=== PATIENT | male | born 1980 | race Caucasian/White ===

== ENCOUNTER 2017-07-31 15:26 | Emergency (ER) | payer SELFPAY ==
[2017-07-31 15:49] VITALS: BP 119/78
--- NOTE | 2017-07-31 16:50 | EDM.PDOC ---
ED HPI GENERAL MEDICAL PROBLEM - General Chief Complaint: Respiratory Problem Stated Complaint: BODY ACHES/COUGH Time Seen by Provider: 07/31/17 16:07 Source of Information: Reports: Patient, Family History Limitations: Reports: No Limitations - History of Present Illness INITIAL COMMENTS - FREE TEXT/NARRATIVE: Patient is a 36 year old male who presents to the E.D. with a two day history of flu like symptoms. States he was exposed to the flu at work. Symptoms he is currently experiencing is Headache, runny, mild cough, congestion, body aches , and pains. Has been taking dayquil with minimal relief. No documented fever although has felt warm. He was vaccinated. Does not have a sore throat. Sister is present in the E.D. as well with similar symptoms. Denies any PMH and is currently on no prescription medications. 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 (see below) Other Treatments SMALLTALK DEVELOPER: dayquil Generalized Pain Score (Numeric/FACES): 3 - Related Data Allergies Allergy/AdvReac Type Severity Reaction Status Date / Time No Known Allergies Allergy Verified 07/24/16 18:11 Past Medical History Psychiatric History: Reports: Depression Social & Family History - Tobacco Use Smoking Status *Q: Current Every Day Smoker Years of Tobacco use: 10 Packs/Tins Daily: 0.5 - Caffeine Use Caffeine Use: Reports: Coffee, Tea - Recreational Drug Use Recreational Drug Use: No ED ROS GENERAL - Review of Systems Review Of Systems: ROS reveals no pertinent complaints other than HPI. ED EXAM, GENERAL - Physical Exam Exam: See Below Exam Limited By: No Limitations General Appearance: Alert, WD/WN, No Apparent Distress Ears: Normal External Exam, Normal Canal, Hearing Grossly Normal, Normal TMs Nose: Nasal Swelling, Clear Rhinorrhea. No: Nasal Drainage Throat/Mouth: Normal Inspection, Normal Oropharynx, Normal Voice, No Airway Compromise Respiratory/Chest: No Respiratory Distress, Lungs Clear, Normal Breath Sounds, No Accessory Muscle Use, Chest Non-Tender Cardiovascular: Normal Peripheral Pulses, Regular Rate, Rhythm, No Murmur Peripheral Pulses: 3+: Radial (R) Extremities: Normal Inspection Neurological: Alert, Oriented, CN II-XII Intact, Normal Cognition, No Motor/ Sensory Deficits Psychiatric: Normal Affect, Normal Mood Skin Exam: Warm, Dry, Intact, Normal Color, No Rash Course - Vital Signs Last Recorded V/S: Last Vital Signs Temp 99.3 F 07/31/17 15:48 Pulse 78 07/31/17 15:48 Resp 20 07/31/17 15:48 BP 119/78 07/31/17 15:48 Pulse Ox 100 07/31/17 15:48 - Re-Assessments/Exams Free Text/Narrative Re-Assessment/Exam: Patient presents to the ED with findings concerning for influenza. Patient's sister is present as well in the ED for evaluation for similar symptoms. Influenza screen was obtained and came back positive for influenza a. I've offered to start the patient on Tamiflu to which he refuses. He is just past the 48 hour hugo from onset to start Tamiflu. We'll discharge patient home with instructions as documented. Departure - Departure Time of Disposition: 16:48 Disposition: Home, Self-Care 01 Condition: Good Clinical Impression: Influenza A - Discharge Information Instructions: Influenza, Adult, [id number], Viral Illness, Adult Referrals: PCP,None [Primary Care Provider] - Forms: ED Department Discharge, ED Return to Work/School Form Additional Instructions: As discussed you have influenza A which is a viral infection that will resolve on its own accord. Treatment will be symptomatic care including Tylenol and ibuprofen in alternating fashion for fever and body aches. Push the fluids. Ensure adequate rest. Symptoms will persist for almost one week. Refrain from large groups, elderly, the young, and immunocompromise patients. No work for the next week. Follow-up with PCP if no improvements.
== END 2017-07-31 17:00 | disposition home or self-care (01) ==
LOC: JD.ED 15:26
DX: J10.1 Influenza due to other identified influenza virus with other respiratory manifestations (principal); F17.210 Nicotine dependence, cigarettes, uncomplicated
CPT/HCPCS: 87804; 99283

== ENCOUNTER 2018-11-04 01:31 | Inpatient (IN) | payer BC ==
--- NOTE | 2018-11-04 01:52 | EDM.PDOCBH ---
ED HPI GENERAL MEDICAL PROBLEM - General Chief Complaint: Drug or Alcohol Abuse Stated Complaint: OD OF MEDS Time Seen by Provider: 11/04/18 01:45 Source of Information: Reports: Family (sister) History Limitations: Reports: Altered Mental Status - History of Present Illness INITIAL COMMENTS - FREE TEXT/NARRATIVE: 38-year-old male presents to the ED after speaking with his sister and indicated that he had taken all of her prescription of 30 tablets of 10 mg strength Flexeril or cyclobenzaprine. He apparently did this approximately 2330 hrs. tonight in an effort to end his life. However he did call his sister shortly after taking the medication. He has a history of depression and apparently has suicidal ideation in the past. At present he is not able to provide any useful history as he is too obtunded from the effect of the medication in terms of dysarthric speech and inability to focus. Ears to have intermittent myoclonic jerks and perhaps is actively hallucinating by his actions. Unclear if he could've taken any other medication. He is known to drink alcohol fairly frequently. Onset: Today Onset Date: 11/03/18 Onset Time: 23:30 Duration: Minutes: Location: Reports: Generalized, Other (Intentional overdose of his sister's medication.) Quality: Reports: Other (Very dysarthric and lethargic.) Severity: Moderate Improves with: Reports: None Worsens with: Reports: None Context: Reports: Other (History suggests intentional overdose of). Denies: Activity, Exercise, Lifting, Sick Contact, Trauma Associated Symptoms: Reports: Confusion ( his sister's medication and effort to end his life.), Malaise, Weakness (Cannot walk on his own.). 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 Unclear if he 's had any other suicide attempts.) Social & Family History - Family History Family Medical History: Noncontributory - Tobacco Use Smoking Status *Q: Unknown Ever Smoked - Caffeine Use Caffeine Use: Reports: Coffee, Tea - Alcohol Use Alcohol Use History: Yes - Living Situation & Occupation Living situation: Reports: (Has been for approximately 2 years. This information was provided by his sister.) Occupation: Employed ED ROS GENERAL - Review of Systems Review Of Systems: Unable To Obtain (Unable to obtain as the patient is too obtunded from the effect of medication that he has taken in overdose.) ED EXAM, BEHAVIORAL HEALTH - Physical Exam Exam: See Below Exam Limited By: Altered Mental Status (Patient is obtunded from medication with dysarthric speech that is not understandable. He will sit up from bed periodically and appears to be visually hallucinating. Seems to have intermittent myoclonic jerks.) General Appearance: Lethargic, Mild Distress Eye Exam: Bilateral Eye: Normal Inspection (No gaze palsy. No nystagmus.) Throat/Mouth: Normal Lips, Normal Oropharynx, Other (Tongue is mildly dry and coated). No: Normal Teeth Head: Atraumatic, Normocephalic, Other Neck: Normal Inspection (No overt signs of head or facial trauma.), Supple. No : Lymphadenopathy (L), Lymphadenopathy (R) Respiratory/Chest: No Respiratory Distress, Lungs Clear, Normal Breath Sounds, No Accessory Muscle Use, Other (O2 sats are 98% on room air with respiratory to 13.) Cardiovascular: Normal Peripheral Pulses, Regular Rate, Rhythm, No Edema, No Gallop, No Murmur, No Rub GI/Abdominal: Normal Bowel Sounds, Soft, Non-Tender, No Organomegaly, No Abnormal Bruit, No Mass, Pelvis Stable Back Exam: Other (No visual signs of trauma to his back no abrasions or contusions appreciated) Extremities: Normal Inspection, Normal Range of Motion, Non-Tender, Other ( Again no evidence of trauma to his extremities from falls) Neurological: Disoriented to Person, Disoriented to Place, Disoriented to Time, Abnormal Reflexes (Areflexia), No Response to Commands, Slow Response to Commands (Speech is so dysarthric it is not understandable.), Dysarthria, Other (Unable to perform any other portions of the neuro exam.). No: Alert, Normal Mood/Affect, CN II-XII Intact, Normal Cognition, Normal Reflexes (Areflexic), No Motor/Sensory Deficits, Oriented x 3 Psychiatric: Restless, Agitated (Seems to be agitated at times.), Visual Hallucinations (Suspect visual hallucinations by his behaviors.). No: Normal Mood, Oriented Skin Exam: Warm, Dry, Intact, Normal color, No rash EKG INTERPRETATION EKG Date: 11/04/18 Time: 01:37 Rhythm: NSR Rate (Beats/Min): 83 [place]: RAD-Right [place] Deviation (Mild right axis deviation 108.) P-Wave: Enlarged (Consider possible left atrial enlargement.) QRS: Other (Left posterior fascicular block pattern left ventricular hypertrophy pattern thin fellow .) ST-T: Other (Diffuse early repolarization pattern.) QT: Normal EKG Interpretation Comments: Abnormal ECG. No signs of ischemia. QT is not prolonged at this time COURSE, BEHAVIORAL HEALTH COMP - Course Vital Signs: Last Vital Signs Temp 36.8 C 11/04/18 01:35 Pulse 86 11/04/18 01:35 Resp 13 11/04/18 01:35 BP 129/82 11/04/18 01:35 Pulse Ox 98 11/04/18 01:35 Orders, Labs, Meds: Active Orders 24 hr Category Date Time Status Patient Status [ADT] Routine ADT 11/04/18 05:10 Active EKG Documentation Completion [RC] STAT Care 11/04/18 01:49 Active SALICYLATE [CHEM] Stat Lab 11/04/18 05:30 Ordered Dextrose 5%-0.9% NaCl [Dextrose 5%-Normal Saline] 1,000 Med 11/04/18 02:00 Active ml IV ASDIRECTED Medication Orders Dextrose/Sodium Chloride (Dextrose 5%-Normal Saline) 1,000 mls @ 150 mls/hr IV ASDIRECTED MICHAEL Last Admin: 11/04/18 01:52 Dose: 150 mls/hr Laboratory Tests 11/04/18 11/04/18 11/04/18 Range/Units 01:38 01:38 01:38 WBC 10.41 H (4.23-9.07) K/mm3 RBC 5.30 (4.63-6.08) M/mm3 Hgb 16.8 (13.7-17.5) gm/L Hct 46.9 (40.1-51.0) % MCV 88.5 (79.0-92.2) fl MCH 31.7 (25.7-32.2) pg MCHC 35.8 H (32.2-35.5) g/dl RDW Std Deviation 38.9 (35.1-43.9) fL Plt Count 226 (163-337) K/mm3 MPV 10.2 (9.4-12.3) fl Neutrophils % (Manual) 76 H (40-60) % Band Neutrophils % 0 (0-10) % Lymphocytes % (Manual) 15 L (20-40) % Atypical Lymphs % 0 % Monocytes % (Manual) 9 (2-10) % Eosinophils % (Manual) 0 L (0.8-7.0) % Basophils % (Manual) 0 L (0.2-1.2) Platelet Estimate Adequate Plt Morphology Comment Normal RBC Morph Comment Normal PT 11.4 (9.5-12.1) SECONDS INR 1.05 APTT 28 (24-31) SECONDS Sodium 139 (136-145) mEq/L Potassium 3.3 L (3.5-5.1) mEq/L Chloride 101 (98-107) mEq/L Carbon Dioxide 25 (21-32) mEq/L Anion Gap 16.3 H (5-15) BUN 11 (7-18) mg/dL Creatinine 1.2 (0.7-1.3) mg/dL Est Cr Clr Drug Dosing 87.87 mL/min Estimated GFR (MDRD) > 60 (>60) mL/min BUN/Creatinine Ratio 9.2 L (14-18) Glucose 105 (74-106) mg/dL Lactic Acid (0.4-2.0) mmol/L Calcium 9.3 (8.5-10.1) mg/dL Magnesium 1.9 (1.8-2.4) mg/dl Total Bilirubin 0.9 (0.2-1.0) mg/dL AST 15 (15-37) U/L ALT 19 (16-63) U/L Alkaline Phosphatase 67 (46-116) U/L Total Protein 7.3 (6.4-8.2) g/dl Albumin 4.3 (3.4-5.0) g/dl Globulin 3.0 gm/dL Albumin/Globulin Ratio 1.4 (1-2) Urine Color (Yellow) Urine Appearance (Clear) Urine pH (5.0-8.0) Ur Specific [place] (1.005-1.030) Urine Protein (Negative) Urine Glucose (UA) (Negative) Urine Ketones (Negative) Urine Occult Blood (Negative) Urine Nitrite (Negative) Urine Bilirubin (Negative) Urine Urobilinogen (0.2-1.0) Ur Leukocyte Esterase (Negative) Urine RBC (0-5) /hpf Urine WBC (0-5) /hpf Ur Squamous Epith Cells (0-5) /hpf Urine Bacteria (FEW) /hpf Urine Mucus (FEW) /hpf Salicylates (2.8-20) mg/dL Urine Opiates Screen (PEAPDZ=613) Ur Buprenorphine Scrn (CUTOFF=10) Ur Oxycodone Screen (DAA4RG=848) Urine Methadone Screen (UMS3KM=159) Ur Propoxyphene Screen (GLHHSW=077) Acetaminophen 0 L (10-30) ug/mL Ur Barbiturates Screen (LAEASL=101) Ur Tricyclics Screen (NTZKAT=097) Ur Phencyclidine Scrn (CUTOFF=25) Ur Amphetamine Screen (WOZWCM=501) U Methamphetamines Scrn (ANGGAP=886) U Benzodiazepines Scrn (JSJRCJ=392) U Cocaine Metab Screen (NJOCSK=166) U Marijuana (THC) Screen (CUTOFF=50) Ethyl Alcohol 0.00 (0.00) gm% 11/04/18 11/04/18 11/04/18 Range/Units 01:38 02:05 02:32 WBC (4.23-9.07) K/mm3 RBC (4.63-6.08) M/mm3 Hgb (13.7-17.5) gm/L Hct (40.1-51.0) % MCV (79.0-92.2) fl MCH (25.7-32.2) pg MCHC (32.2-35.5) g/dl RDW Std Deviation (35.1-43.9) fL Plt Count (163-337) K/mm3 MPV (9.4-12.3) fl Neutrophils % (Manual) (40-60) % Band Neutrophils % (0-10) % Lymphocytes % (Manual) (20-40) % Atypical Lymphs % % Monocytes % (Manual) (2-10) % Eosinophils % (Manual) (0.8-7.0) % Basophils % (Manual) (0.2-1.2) Platelet Estimate Plt Morphology Comment RBC Morph Comment PT (9.5-12.1) SECONDS INR APTT (24-31) SECONDS Sodium (136-145) mEq/L Potassium (3.5-5.1) mEq/L Chloride (98-107) mEq/L Carbon Dioxide (21-32) mEq/L Anion Gap (5-15) BUN (7-18) mg/dL Creatinine (0.7-1.3) mg/dL Est Cr Clr Drug Dosing mL/min Estimated GFR (MDRD) (>60) mL/min BUN/Creatinine Ratio (14-18) Glucose (74-106) mg/dL Lactic Acid 0.8 (0.4-2.0) mmol/L Calcium (8.5-10.1) mg/dL Magnesium (1.8-2.4) mg/dl Total Bilirubin (0.2-1.0) mg/dL AST (15-37) U/L ALT (16-63) U/L Alkaline Phosphatase (46-116) U/L Total Protein (6.4-8.2) g/dl Albumin (3.4-5.0) g/dl Globulin gm/dL Albumin/Globulin Ratio (1-2) Urine Color Light yellow (Yellow) Urine Appearance Clear (Clear) Urine pH 6.5 (5.0-8.0) Ur Specific [place] <=1.005 (1.005-1.030) Urine Protein Negative (Negative) Urine Glucose (UA) Negative (Negative) Urine Ketones Negative (Negative) Urine Occult Blood Negative (Negative) Urine Nitrite Negative (Negative) Urine Bilirubin Negative (Negative) Urine Urobilinogen 0.2 (0.2-1.0) Ur Leukocyte Esterase Negative (Negative) Urine RBC 0-5 (0-5) /hpf Urine WBC Not seen (0-5) /hpf Ur Squamous Epith Cells 0-5 (0-5) /hpf Urine Bacteria Rare (FEW) /hpf Urine Mucus Not seen (FEW) /hpf Salicylates 7.2 (2.8-20) mg/dL Urine Opiates Screen (QRUCXU=567) Ur Buprenorphine Scrn (CUTOFF=10) Ur Oxycodone Screen (TPK0XW=540) Urine Methadone Screen (YFK0RX=810) Ur Propoxyphene Screen (MSGQCJ=194) Acetaminophen (10-30) ug/mL Ur Barbiturates Screen (NLDOYV=956) Ur Tricyclics Screen (BGXBWZ=445) Ur Phencyclidine Scrn (CUTOFF=25) Ur Amphetamine Screen (NESYJV=498) U Methamphetamines Scrn (THZQQO=533) U Benzodiazepines Scrn (YWYIEW=391) U Cocaine Metab Screen (TWVCZD=149) U Marijuana (THC) Screen (CUTOFF=50) Ethyl Alcohol (0.00) gm% 11/04/18 Range/Units 02:32 WBC (4.23-9.07) K/mm3 RBC (4.63-6.08) M/mm3 Hgb (13.7-17.5) gm/L Hct (40.1-51.0) % MCV (79.0-92.2) fl MCH (25.7-32.2) pg MCHC (32.2-35.5) g/dl RDW Std Deviation (35.1-43.9) fL Plt Count (163-337) K/mm3 MPV (9.4-12.3) fl Neutrophils % (Manual) (40-60) % Band Neutrophils % (0-10) % Lymphocytes % (Manual) (20-40) % Atypical Lymphs % % Monocytes % (Manual) (2-10) % Eosinophils % (Manual) (0.8-7.0) % Basophils % (Manual) (0.2-1.2) Platelet Estimate Plt Morphology Comment RBC Morph Comment PT (9.5-12.1) SECONDS INR APTT (24-31) SECONDS Sodium (136-145) mEq/L Potassium (3.5-5.1) mEq/L Chloride (98-107) mEq/L Carbon Dioxide (21-32) mEq/L Anion Gap (5-15) BUN (7-18) mg/dL Creatinine (0.7-1.3) mg/dL Est Cr Clr Drug Dosing mL/min Estimated GFR (MDRD) (>60) mL/min BUN/Creatinine Ratio (14-18) Glucose (74-106) mg/dL Lactic Acid (0.4-2.0) mmol/L Calcium (8.5-10.1) mg/dL Magnesium (1.8-2.4) mg/dl Total Bilirubin (0.2-1.0) mg/dL AST (15-37) U/L ALT (16-63) U/L Alkaline Phosphatase (46-116) U/L Total Protein (6.4-8.2) g/dl Albumin (3.4-5.0) g/dl Globulin gm/dL Albumin/Globulin Ratio (1-2) Urine Color (Yellow) Urine Appearance (Clear) Urine pH (5.0-8.0) Ur Specific [place] (1.005-1.030) Urine Protein (Negative) Urine Glucose (UA) (Negative) Urine Ketones (Negative) Urine Occult Blood (Negative) Urine Nitrite (Negative) Urine Bilirubin (Negative) Urine Urobilinogen (0.2-1.0) Ur Leukocyte Esterase (Negative) Urine RBC (0-5) /hpf Urine WBC (0-5) /hpf Ur Squamous Epith Cells (0-5) /hpf Urine Bacteria (FEW) /hpf Urine Mucus (FEW) /hpf Salicylates (2.8-20) mg/dL Urine Opiates Screen Negative (KKKTSB=451) Ur Buprenorphine Scrn Negative (CUTOFF=10) Ur Oxycodone Screen Negative (RGB7LJ=444) Urine Methadone Screen Negative (SEG9QN=090) Ur Propoxyphene Screen Negative (KXOSZO=609) Acetaminophen (10-30) ug/mL Ur Barbiturates Screen Negative (ETLBYA=976) Ur Tricyclics Screen Presumptive positive H (HOEKOE=243) Ur Phencyclidine Scrn Negative (CUTOFF=25) Ur Amphetamine Screen Negative (TZMQSQ=860) U Methamphetamines Scrn Negative (UIYKQO=523) U Benzodiazepines Scrn Negative (PWKSZY=937) U Cocaine Metab Screen Negative (OTXLOM=144) U Marijuana (THC) Screen Presumptive positive H (CUTOFF=50) Ethyl Alcohol (0.00) gm% Medications Generic Name Dose Route Start Last Admin Trade Name Freq PRN Reason Stop Dose Admin Dextrose/Sodium Chloride 1,000 mls @ 150 mls/hr 11/04/18 02:00 11/04/18 01:52 Dextrose 5%-Normal Saline IV 150 mls/hr ASDIRECTED MICHAEL Administration Discontinued Medications Generic Name Dose Route Start Last Admin Trade Name Freq PRN Reason Stop Dose Admin Lorazepam 1 mg 11/04/18 02:11 11/04/18 02:19 Ativan IVPUSH 11/04/18 02:12 1 mg ONETIME ONE Administration Lorazepam 1 mg 11/04/18 02:28 11/04/18 02:31 Ativan IVPUSH 11/04/18 02:29 1 mg ONETIME ONE Administration Re-Assessment/Re-Exam: 38-year-old male presents to the ED after reporting to his sister that he had taken approximately 30 tablets of 10 mg strength Flexeril ( cyclobenzaprine) tablets about 2330 hrs. last evening in an effort to end his life. Apparently he drinks alcohol fairly regularly. His sister believes that he is spoken about suicide in the past but she is unclear if he's ever had a previous suicide attempt. Patient is too sleepy and drowsy to provide any useful history. He has some myotonic jerks once in a while but is unable to speak or make eye contact. Heart rate is 80 and sinus. BP is 116/76. Sats were 96% on room air. Flexeril has a very long half-life perhaps up to 48 hours and he will have to be observed in the ICU. Routine labs as well as serum salicylate, acetaminophen and urine drug screen to be obtained. Also a serum alcohol level. Re-Assessment/Re-Exam Date: 11/04/18 (0210: Patient is sitting up and is very confused. He is at risk of falling out of bed. We'll give him a dose of Ativan 1 mg IV. He may require leather restraints.) Re-Assessment/Re-Exam Time: 03:43 (Labs reveal a white count of 10.41 with 76% neutrophils and no band cells. Hemoglobin is 16.8 with hematocrit of 46.9 revealing some degree of hemoconcentration. MCV is normal. Platelet count 226, 000. PT is 11.4 with an INR of 1.05. PTT is 28. Sodium 139 potassium slightly low at 3.3. Chloride 101 with a bicarbonate 25. Anion gap is slightly elevated at 16.3. BUN is 11 with a creatinine of 1.2. Estimated GFR is greater than 60. Glucose is 105. Lactic acid is 0.8. Calcium 9.3. Magnesium 1.9. Total bilirubin is 0.9 the remainder the liver function studies are normal. Total protein is 7.3 with an albumin fraction of 4.3. Urine drug screen is negative for acetaminophen. Salicylate level is 7.2--therapeutic range. Urine drug screen is presumptive positive for try cyclic's. Was also presumptively positive for marijuana. Blood alcohol is 0.00 patient is required 2 mg of Ativan in total to provide some degree of sedation and safety for him to stay in his bed. He is being watched one-on-one. Blood pressure is currently 113/73 with a heart rate of 75 and sats of 98% on room air. Plan will be to have him admitted to intensive care unit shortly.) Medical Clearance: 11/04/18 04:16 Case discussed with on-call hospitalist Dr. Bailey at this time. Patient will remain in the ED for at least another hour and then tentatively be transferred to intensive care unit as long as he remains stable. 11/04/18 05:13 patient has remained sleeping. Vitals have remained stable with BP 121/75 heart rate is 70 and sinus pulse ox 97% on room air. Patient will therefore be transferred to the intensive care unit. Bridge orders have been written. He is due for repeat salicylate level at 0530 hrs. Departure - Departure Time of Disposition: 05:14 Disposition: Admitted As Inpatient 68 Condition: Fair Clinical Impression: Intentional overdose of drug in tablet form, Suicide attempt - Discharge Information *PRESCRIPTION DRUG MONITORING PROGRAM REVIEWED*: No *COPY OF PRESCRIPTION DRUG MONITORING REPORT IN PATIENT JAY: No Referrals: PCP,None [Primary Care Provider] - Additional Instructions: Patient will be admitted to the intensive care unit for monitoring purposes. He has taken a sedative medication which will peak in a proximally 6 hours providing that the tablets of not stuck together. It may produce prolonged sedation and visual hallucinations. It makes him prone to a seizure disorder and can prolong the QT interval is heart i.e. arrhythmias. Since he does have some salicylate in his drug screen and will be repeated in a few hours time to make sure there's been no agglutination of aspirin tablets in his stomach that will suddenly produce a metabolic acidosis several hours later. - My Orders Last 24 Hours: My Active Orders 11/04/18 01:49 EKG Documentation Completion [RC] STAT 11/04/18 02:00 Dextrose 5%-0.9% NaCl [Dextrose 5%-Normal Saline] 1,000 ml IV ASDIRECTED 11/04/18 05:10 Patient Status [ADT] Routine 11/04/18 05:30 SALICYLATE [CHEM] Stat - Assessment/Plan Last 24 Hours: My Active Orders 11/04/18 01:49 EKG Documentation Completion [RC] STAT 11/04/18 02:00 Dextrose 5%-0.9% NaCl [Dextrose 5%-Normal Saline] 1,000 ml IV ASDIRECTED 11/04/18 05:10 Patient Status [ADT] Routine 11/04/18 05:30 SALICYLATE [CHEM] Stat
[2018-11-04] MEDS ORDERED: Dextrose 5%-0.9% NaCl 1,000 ML IV SCH (02:00)
[2018-11-04] MEDS ORDERED: LORazepam 2 MG/ML SDV IVPUSH ONE ×2 (02:11→02:28)
[2018-11-04 02:19] LABS: ACETAMINOPHEN 0 ug/mL (10-30)
[2018-11-04] MEDS ORDERED: Potassium Chloride 40 MEQ in Dextrose 5% in Water 1,000 ML IV SCH ×2 (05:15)
[2018-11-04] MEDS: Dextrose 5%-0.9% NaCl with KCl 1,000 ML IV SCH ×3 (05:51→19:04)
--- NOTE | 2018-11-04 06:52 | PCM.HP ---
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 He reportedly taken 30 tablets of 10 mg strength Flexeril over his sisters. Reportedly took them at around 31/08/29 and attempt to end his life. He did call his sister shortly after taking the medication to tell her what he had done. He has a history of depression and suicidal ideation in the past. He is noted to be very obtunded the ED with dysarthric speech and ability to focus He also noted to have myoclonic jerks and they're concerned that he may be hallucinating. Unknown if taken any medications but he is known to drink alcohol frequently. In the ED temperature 36.8 Celsius. Pulse 86. Respirations 13. Blood pressure 129/82. Pulse ox 98%. Labs are obtained: WBC 10.41. Hemoglobin 16.8. Hematocrit 46.9. He's normocytic. Platelet are good at 226,000. Neutrophils are elevated at 76%. There is no bandemia. PT is 11.4. INR 1.05. APTT is 28. Sodium is 139. Potassium is low at 3.3. Chloride 101. Copaxone 25. Anion gap was high at 16.3. BUN is 11. Creatinine 1.2. EGFR greater than 60. Glucose is 105. Calcium 9.3. Magnesium 1.9. Bilirubin 0.9. AST is 15, ALT 19, alkaline phosphatase 67. Protein 7.3. Albumin 4.3. Ethyl alcohol is 0.00. Lactic acid 0.8. UA is obtained showing diluted urine with rare bacteria. Salicylates are 7.2. UDS is positive for tricyclics and marijuana. Patient attempt to get up and is very confused so he is given 1 mg of Ativan. He is given another milligram of Ativan for safety and placed on one -to-one status. Twelve-lead EKG is obtained showing sinus rhythm at 83 bpm with right axis deviation and an enlarged P wave. There is a left posterior fascicular block pattern and left ventricular hypertrophy pattern along with early repolarization pattern. QTc is not noted to be prolonged. Old reveal he was seen in the ED on 07/24/16 or suicidal ideation, although he did not have a plan and was reportedly no longer suicidal the ED. At that time he was offered resources such as and [facility] counseling and then made a verbal contract with the ED provider that he would seek help should he become suicidal again. He was ultimately discharged home. At that time he was noted to be using alcohol nearly daily and was a daily smoker. - Related Data Allergies/Adverse Reactions: Allergies Allergy/AdvReac Type Severity Reaction Status Date / Time No Known Allergies Allergy Verified 11/04/18 08:23 Home Medications: Home Meds . [No Known Home Meds] 11/04/18 [History] Past Medical History Psychiatric History: Reports: Anxiety, Depression, Suicidal Ideation ( Apparently has admitted to suicidal radiation in the past but it's unclear if he was ever admitted to a psychiatric hospital for screening exam. Unclear if he 's had any other suicide attempts.) Social & Family History - Family History Family Medical History: Noncontributory - Tobacco Use Smoking Status *Q: Unknown Ever Smoked - Caffeine Use Caffeine Use: Reports: Coffee, Tea - Living Situation & Occupation Living situation: Reports: (Has been for approximately 2 years. This information was provided by his sister.) Occupation: Employed H&P Review of Systems - Review of Systems: Review Of Systems: Unable To Obtain Free Text/Narrative: unable to obtain ROS as patient is sleeping very heavily. Nursing does report they were able to wake him up momentarily to ask him very basic questions and he did respond appropriately. He reportedly did confirm that he is a smoker and denied any current symptoms. General: Denies: Fever Pulmonary: Denies: Wheezing, Cough Gastrointestinal: Denies: Diarrhea, Vomiting Skin: Denies: Cyanosis Exam - Exam Exam: See Below - Vital Signs Vital Signs: Last Vital Signs Temp 97.3 F 11/04/18 05:30 Pulse 86 11/04/18 01:35 Resp 13 11/04/18 05:30 BP 101/70 11/04/18 05:30 Pulse Ox 99 11/04/18 05:30 Weight: 160 lb 3.2 oz - Exam General: Other (Sleeping very deeply ) Neck: Supple, Trachea Midline, 2 Lungs: Clear to Auscultation, Normal Respiratory Effort Cardiovascular: Regular Rate, Regular Rhythm GI/Abdominal Exam: Normal Bowel Sounds, Soft, No Distention (Male) Exam: Deferred Rectal (Males) Exam: Deferred Back Exam: Normal Inspection Extremities: Normal Inspection, No Pedal Edema, Normal Capillary Refill Peripheral Pulses: 3+: Radial (L), Radial (R), Dorsalis Pedis (L), Dorsalis Pedis (R) Skin: Warm, Dry, Intact - Patient Data Lab Results Last 24 hrs: Laboratory Results - last 24 hr 11/04/18 11/04/18 11/04/18 Range/Units 01:38 01:38 01:38 WBC 10.41 H (4.23-9.07) K/mm3 RBC 5.30 (4.63-6.08) M/mm3 Hgb 16.8 (13.7-17.5) gm/L Hct 46.9 (40.1-51.0) % MCV 88.5 (79.0-92.2) fl MCH 31.7 (25.7-32.2) pg MCHC 35.8 H (32.2-35.5) g/dl RDW Std Deviation 38.9 (35.1-43.9) fL Plt Count 226 (163-337) K/mm3 MPV 10.2 (9.4-12.3) fl Neutrophils % (Manual) 76 H (40-60) % Band Neutrophils % 0 (0-10) % Lymphocytes % (Manual) 15 L (20-40) % Atypical Lymphs % 0 % Monocytes % (Manual) 9 (2-10) % Eosinophils % (Manual) 0 L (0.8-7.0) % Basophils % (Manual) 0 L (0.2-1.2) Platelet Estimate Adequate Plt Morphology Comment Normal RBC Morph Comment Normal PT 11.4 (9.5-12.1) SECONDS INR 1.05 APTT 28 (24-31) SECONDS Sodium 139 (136-145) mEq/L Potassium 3.3 L (3.5-5.1) mEq/L Chloride 101 (98-107) mEq/L Carbon Dioxide 25 (21-32) mEq/L Anion Gap 16.3 H (5-15) BUN 11 (7-18) mg/dL Creatinine 1.2 (0.7-1.3) mg/dL Est Cr Clr Drug Dosing 87.87 mL/min Estimated GFR (MDRD) > 60 (>60) mL/min BUN/Creatinine Ratio 9.2 L (14-18) Glucose 105 (74-106) mg/dL Lactic Acid (0.4-2.0) mmol/L Calcium 9.3 (8.5-10.1) mg/dL Magnesium 1.9 (1.8-2.4) mg/dl Total Bilirubin 0.9 (0.2-1.0) mg/dL AST 15 (15-37) U/L ALT 19 (16-63) U/L Alkaline Phosphatase 67 (46-116) U/L Total Protein 7.3 (6.4-8.2) g/dl Albumin 4.3 (3.4-5.0) g/dl Globulin 3.0 gm/dL Albumin/Globulin Ratio 1.4 (1-2) Urine Color (Yellow) Urine Appearance (Clear) Urine pH (5.0-8.0) Ur Specific [place] (1.005-1.030) Urine Protein (Negative) Urine Glucose (UA) (Negative) Urine Ketones (Negative) Urine Occult Blood (Negative) Urine Nitrite (Negative) Urine Bilirubin (Negative) Urine Urobilinogen (0.2-1.0) Ur Leukocyte Esterase (Negative) Urine RBC (0-5) /hpf Urine WBC (0-5) /hpf Ur Squamous Epith Cells (0-5) /hpf Urine Bacteria (FEW) /hpf Urine Mucus (FEW) /hpf Salicylates (2.8-20) mg/dL Urine Opiates Screen (USKBSR=595) Ur Buprenorphine Scrn (CUTOFF=10) Ur Oxycodone Screen (GIU0IF=776) Urine Methadone Screen (NSO6HO=365) Ur Propoxyphene Screen (SXWDLN=608) Acetaminophen 0 L (10-30) ug/mL Ur Barbiturates Screen (DWCMNN=579) Ur Tricyclics Screen (BORHLG=946) Ur Phencyclidine Scrn (CUTOFF=25) Ur Amphetamine Screen (KCQULV=656) U Methamphetamines Scrn (RCZKIZ=491) U Benzodiazepines Scrn (UYCHKA=253) U Cocaine Metab Screen (WCOCUU=199) U Marijuana (THC) Screen (CUTOFF=50) Ethyl Alcohol 0.00 (0.00) gm% 11/04/18 11/04/18 11/04/18 Range/Units 01:38 02:05 02:32 WBC (4.23-9.07) K/mm3 RBC (4.63-6.08) M/mm3 Hgb (13.7-17.5) gm/L Hct (40.1-51.0) % MCV (79.0-92.2) fl MCH (25.7-32.2) pg MCHC (32.2-35.5) g/dl RDW Std Deviation (35.1-43.9) fL Plt Count (163-337) K/mm3 MPV (9.4-12.3) fl Neutrophils % (Manual) (40-60) % Band Neutrophils % (0-10) % Lymphocytes % (Manual) (20-40) % Atypical Lymphs % % Monocytes % (Manual) (2-10) % Eosinophils % (Manual) (0.8-7.0) % Basophils % (Manual) (0.2-1.2) Platelet Estimate Plt Morphology Comment RBC Morph Comment PT (9.5-12.1) SECONDS INR APTT (24-31) SECONDS Sodium (136-145) mEq/L Potassium (3.5-5.1) mEq/L Chloride (98-107) mEq/L Carbon Dioxide (21-32) mEq/L Anion Gap (5-15) BUN (7-18) mg/dL Creatinine (0.7-1.3) mg/dL Est Cr Clr Drug Dosing mL/min Estimated GFR (MDRD) (>60) mL/min BUN/Creatinine Ratio (14-18) Glucose (74-106) mg/dL Lactic Acid 0.8 (0.4-2.0) mmol/L Calcium (8.5-10.1) mg/dL Magnesium (1.8-2.4) mg/dl Total Bilirubin (0.2-1.0) mg/dL AST (15-37) U/L ALT (16-63) U/L Alkaline Phosphatase (46-116) U/L Total Protein (6.4-8.2) g/dl Albumin (3.4-5.0) g/dl Globulin gm/dL Albumin/Globulin Ratio (1-2) Urine Color Light yellow (Yellow) Urine Appearance Clear (Clear) Urine pH 6.5 (5.0-8.0) Ur Specific [place] <=1.005 (1.005-1.030) Urine Protein Negative (Negative) Urine Glucose (UA) Negative (Negative) Urine Ketones Negative (Negative) Urine Occult Blood Negative (Negative) Urine Nitrite Negative (Negative) Urine Bilirubin Negative (Negative) Urine Urobilinogen 0.2 (0.2-1.0) Ur Leukocyte Esterase Negative (Negative) Urine RBC 0-5 (0-5) /hpf Urine WBC Not seen (0-5) /hpf Ur Squamous Epith Cells 0-5 (0-5) /hpf Urine Bacteria Rare (FEW) /hpf Urine Mucus Not seen (FEW) /hpf Salicylates 7.2 (2.8-20) mg/dL Urine Opiates Screen (DSQZXU=709) Ur Buprenorphine Scrn (CUTOFF=10) Ur Oxycodone Screen (PCG6YV=834) Urine Methadone Screen (IWB3YU=080) Ur Propoxyphene Screen (HMVCGO=991) Acetaminophen (10-30) ug/mL Ur Barbiturates Screen (UEUDQH=236) Ur Tricyclics Screen (DYYKLC=450) Ur Phencyclidine Scrn (CUTOFF=25) Ur Amphetamine Screen (DKFUYA=602) U Methamphetamines Scrn (KSMZOM=735) U Benzodiazepines Scrn (MNAHUD=591) U Cocaine Metab Screen (KNHKCB=132) U Marijuana (THC) Screen (CUTOFF=50) Ethyl Alcohol (0.00) gm% 11/04/18 11/04/18 Range/Units 02:32 05:45 WBC (4.23-9.07) K/mm3 RBC (4.63-6.08) M/mm3 Hgb (13.7-17.5) gm/L Hct (40.1-51.0) % MCV (79.0-92.2) fl MCH (25.7-32.2) pg MCHC (32.2-35.5) g/dl RDW Std Deviation (35.1-43.9) fL Plt Count (163-337) K/mm3 MPV (9.4-12.3) fl Neutrophils % (Manual) (40-60) % Band Neutrophils % (0-10) % Lymphocytes % (Manual) (20-40) % Atypical Lymphs % % Monocytes % (Manual) (2-10) % Eosinophils % (Manual) (0.8-7.0) % Basophils % (Manual) (0.2-1.2) Platelet Estimate Plt Morphology Comment RBC Morph Comment PT (9.5-12.1) SECONDS INR APTT (24-31) SECONDS Sodium (136-145) mEq/L Potassium (3.5-5.1) mEq/L Chloride (98-107) mEq/L Carbon Dioxide (21-32) mEq/L Anion Gap (5-15) BUN (7-18) mg/dL Creatinine (0.7-1.3) mg/dL Est Cr Clr Drug Dosing mL/min Estimated GFR (MDRD) (>60) mL/min BUN/Creatinine Ratio (14-18) Glucose (74-106) mg/dL Lactic Acid (0.4-2.0) mmol/L Calcium (8.5-10.1) mg/dL Magnesium (1.8-2.4) mg/dl Total Bilirubin (0.2-1.0) mg/dL AST (15-37) U/L ALT (16-63) U/L Alkaline Phosphatase (46-116) U/L Total Protein (6.4-8.2) g/dl Albumin (3.4-5.0) g/dl Globulin gm/dL Albumin/Globulin Ratio (1-2) Urine Color (Yellow) Urine Appearance (Clear) Urine pH (5.0-8.0) Ur Specific [place] (1.005-1.030) Urine Protein (Negative) Urine Glucose (UA) (Negative) Urine Ketones (Negative) Urine Occult Blood (Negative) Urine Nitrite (Negative) Urine Bilirubin (Negative) Urine Urobilinogen (0.2-1.0) Ur Leukocyte Esterase (Negative) Urine RBC (0-5) /hpf Urine WBC (0-5) /hpf Ur Squamous Epith Cells (0-5) /hpf Urine Bacteria (FEW) /hpf Urine Mucus (FEW) /hpf Salicylates 6.2 (2.8-20) mg/dL Urine Opiates Screen Negative (CHOWJX=244) Ur Buprenorphine Scrn Negative (CUTOFF=10) Ur Oxycodone Screen Negative (NHT3YQ=259) Urine Methadone Screen Negative (TVG9MP=370) Ur Propoxyphene Screen Negative (HAQLCE=258) Acetaminophen (10-30) ug/mL Ur Barbiturates Screen Negative (CGKCSR=568) Ur Tricyclics Screen Presumptive positive H (TQYGJO=246) Ur Phencyclidine Scrn Negative (CUTOFF=25) Ur Amphetamine Screen Negative (PMWPSH=641) U Methamphetamines Scrn Negative (BJOYDO=640) U Benzodiazepines Scrn Negative (TBFWZN=670) U Cocaine Metab Screen Negative (AWBVYD=208) U Marijuana (THC) Screen Presumptive positive H (CUTOFF=50) Ethyl Alcohol (0.00) gm% Result Diagrams: 11/04/18 01:38 11/04/18 01:38 - Problem List (1) Intentional overdose of drug in tablet form SNOMED Code(s): 753973266 ICD Code: T50.902A - POISONING BY UNSP DRUG/MEDS/BIOL SUBST, SELF-HARM, INIT Status: Acute Priority: High Current Visit: Yes (2) Suicide attempt SNOMED Code(s): 91931338 ICD Code: T14.91XA - SUICIDE ATTEMPT, INITIAL ENCOUNTER Status: Acute Priority: High Current Visit: Yes (3) Anxiety SNOMED Code(s): 94243940 ICD Code: F41.9 - ANXIETY DISORDER, UNSPECIFIED Status: Chronic Priority : High Current Visit: Yes (4) Depressive disorder SNOMED Code(s): 96791344 ICD Code: F32.9 - MAJOR DEPRESSIVE DISORDER, SINGLE EPISODE, UNSPECIFIED Status: Chronic Priority: High Current Visit: Yes (5) Tobacco use disorder SNOMED Code(s): 645807250 ICD Code: F17.200 - NICOTINE DEPENDENCE, UNSPECIFIED, UNCOMPLICATED Status : Chronic Priority: Medium Current Visit: Yes (6) Hypokalemia SNOMED Code(s): 24177555 ICD Code: E87.6 - HYPOKALEMIA Status: Acute Priority: High Current Visit: Yes Problem List Initiated/Reviewed/Updated: Yes Orders Last 24hrs: Active Orders 24 hr Category Date Time Status Patient Status [ADT] Routine ADT 11/04/18 05:10 Active Bedrest [RC] ASDIRECTED Care 11/04/18 05:47 Active Cardiac Monitoring [RC] . DIRECTED Care 11/04/18 05:39 Active EKG Documentation Completion [RC] STAT Care 11/04/18 01:49 Active Clear Liquid Diet [DIET] Diet 11/04/18 Breakfast Active Dextrose 5%-0.9% NaCl [Dextrose 5%-Normal Saline] 1,000 Med 11/04/18 02:00 Active ml IV ASDIRECTED Dextrose 5%-0.9% NaCl with KCl [D5 NS with 20 mEq KCl] Med 11/04/18 05:45 Active 1,000 ml IV ASDIRECTED LORazepam [Ativan] Med 11/04/18 05:43 Active 1 mg IVPUSH Q30M PRN Pulse Oximetry Continuous Monitoring [OM.PC] Routine Oth 11/04/18 05:39 Active Code Status [Resuscitation Status] Routine Resus Stat 11/04/18 05:39 Ordered Medication Orders Dextrose/Sodium Chloride (Dextrose 5%-Normal Saline) 1,000 mls @ 150 mls/hr IV ASDIRECTED MICHAEL Last Admin: 11/04/18 01:52 Dose: 150 mls/hr Potassium Chloride/Dextrose/Sod Cl (D5 Ns With 20 Meq Kcl) 1,000 mls @ 150 mls/ hr IV ASDIRECTED MICHAEL Last Admin: 11/04/18 05:51 Dose: 150 mls/hr Lorazepam (Ativan) 1 mg IVPUSH Q30M PRN PRN Reason: restlessness or agitiation Assessment/Plan Comment:: I/P: Acute: Suicide attempt -Reportedly took 30 tablets of sisters 10mg Flexeril -Has had suicidal ideation in the past -Was seen in our ED on 07/24/16 for suicidal ideation -Was no longer suicidal in ED -Was given community resources and discharged home -Hx/o: anxiety, depression -12-lead EKG: NSR no QT prolongation -UDS: Salicylates 7.2 (therapeutic range), Positive Tricyclics and Marijuana -ETOH: 0.00 -IV ativan as needed -IV fluids as ordered -Suicide precautions; 1:1 -Seizure precautions -Ativan for abortive seizures -Psychiatry consult when appropriate -SW consult -Spiritual care consult -Per poison control: half life was achieved on 11/04/18 at 0530. He will likely remain very tired for next few days. Hypokalemia -Potassium 3.3 in ED -Supplemented -Monitor Hx/o daily ETOH use -ETOH 0.00 in ED -Noted to drink daily in past notes -[facility] protocol -Start thiamine daily -Start folic acid daily -Continue to monitor for withdrawal symptoms Tobacco use disorder -Reported daily cigarette use on all prior visits -Confirmed to nursing that he is a smoker -Nicotine patch ordered -Cessation counseling when able Chronic: Anxiety Depression Hx/o suicidal ideation Plan: Admit to ICU Routine AM labs Other orders as indicated above Has not home medications No need for PT/OT at this time DVT prophylaxis: VTE score of 0 Code status: Full code; PCP: None
[2018-11-04] MEDS ORDERED: LORazepam 2 MG/ML SDV IVPUSH PRN ×2 (06:55→06:56)
[2018-11-04] MEDS: Potassium Chloride 10 MEQ in Premix Bag 1 BAG IV SCH ×4 (07:25→11:00)
[2018-11-04] MEDS: Folic Acid 50 MG/10 ML MDV IV SCH ×2 (07:26→08:11)
[2018-11-04] MEDS: Nicotine 21 MG/24 Hr Patch TRDERM SCH ×2 (07:28→08:12)
[2018-11-04] MEDS: Thiamine 200 MG/2 ML MDV IVPUSH SCH ×2 (07:29→08:12)
[2018-11-04] MEDS ORDERED: Thiamine 100 MG in Sodium Chloride 0.9% 100 ML IV SCH (09:00)
[2018-11-04] MEDS ORDERED: Lactated Ringers 1,000 ML IV SCH (19:45)
[2018-11-05] MEDS: Nicotine 21 MG/24 Hr Patch TRDERM SCH (08:06)
[2018-11-05] MEDS: LORazepam 2 MG/ML SDV IVPUSH PRN ×3 (08:11→13:21)
[2018-11-05] MEDS ORDERED: Thiamine 100 MG Tab PO SCH (09:00)
[2018-11-05] MEDS ORDERED: Folic Acid 1 MG Tab PO SCH (09:00)
--- NOTE | 2018-11-05 09:38 | PCM.DCSUM1 ---
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 He reportedly taken 30 tablets of 10 mg strength Flexeril over his sisters. Reportedly took them at around 31/08/29 and attempt to end his life. He did call his sister shortly after taking the medication to tell her what he had done. He has a history of depression and suicidal ideation in the past. He is noted to be very obtunded the ED with dysarthric speech and ability to focus He also noted to have myoclonic jerks and they're concerned that he may be hallucinating. Unknown if taken any medications but he is known to drink alcohol frequently. In the ED temperature 36.8 Celsius. Pulse 86. Respirations 13. Blood pressure 129/82. Pulse ox 98%. Labs are obtained: WBC 10.41. Hemoglobin 16.8. Hematocrit 46.9. He's normocytic. Platelet are good at 226,000. Neutrophils are elevated at 76%. There is no bandemia. PT is 11.4. INR 1.05. APTT is 28. Sodium is 139. Potassium is low at 3.3. Chloride 101. Copaxone 25. Anion gap was high at 16.3. BUN is 11. Creatinine 1.2. EGFR greater than 60. Glucose is 105. Calcium 9.3. Magnesium 1.9. Bilirubin 0.9. AST is 15, ALT 19, alkaline phosphatase 67. Protein 7.3. Albumin 4.3. Ethyl alcohol is 0.00. Lactic acid 0.8. UA is obtained showing diluted urine with rare bacteria. Salicylates are 7.2. UDS is positive for tricyclics and marijuana. Patient attempt to get up and is very confused so he is given 1 mg of Ativan. He is given another milligram of Ativan for safety and placed on one -to-one status. Twelve-lead EKG is obtained showing sinus rhythm at 83 bpm with right axis deviation and an enlarged P wave. There is a left posterior fascicular block pattern and left ventricular hypertrophy pattern along with early repolarization pattern. QTc is not noted to be prolonged. Old reveal he was seen in the ED on 07/24/16 or suicidal ideation, although he did not have a plan and was reportedly no longer suicidal the ED. At that time he was offered resources such as AA and [facility] counseling and then made a verbal contract with the ED provider that he would seek help should he become suicidal again. He was ultimately discharged home. At that time he was noted to be using alcohol nearly daily and was a daily smoker. Brief History: patient had an uneventful hospital course. He spent most of the day yesterday sleeping and this morning after being told he was going to be transferred to psychiatric unit for suicidal ideation he did require 1 mg of Ativan. His mild leukocytosis resolved overnight and his hypokalemia has also resolved. Patient did state he wanted to kill himself again this morning. Diagnosis: Stroke: No - Discharge Data Discharge Date: 11/05/18 Discharge Disposition: DC/Tfer to Psych Hosp/Unit 65 Condition: Good - Patient Summary/Data Consults: Consultations 11/04/18 06:44 Consult to Physician [CONS] Routine 11/04/18 06:45 Consult to Case Management/[employer]ine Pipefitter [CONS] Routine Consult to Spiritual Care [CONS] Routine - Patient Instructions Diet: Regular Diet as Tolerated Activity: As Tolerated Driving: Do Not Drive Showering/Bathing: May Shower - Discharge Plan *PRESCRIPTION DRUG MONITORING PROGRAM REVIEWED*: No *COPY OF PRESCRIPTION DRUG MONITORING REPORT IN PATIENT JAY: No Home Medications: Home Meds . [No Known Home Meds] 11/04/18 [History] Oxygen Therapy Mode: Room Air Referrals: PCP,None [Primary Care Provider] - - Discharge Summary/Plan Comment DC Time >30 min.: Yes Discharge Summary/Plan Comment: patient [facility] be [facility] to their psychiatric unit for further evaluation and treatment of his unspecified mood disorder. accepting physician is Dr. Mercedes He has been placed on a 24-hour hold and will be accompanied by an officer from the [facility]'s department. - General Info Date of Service: 11/05/18 Admission Dx/Problem (Free Text: Admission Diagnosis/Problem Admission Diagnosis/Problem Suicide attempt by drug ingestion Functional Status: Reports: Pain Controlled - Review of Systems General: Reports: No Symptoms HEENT: Reports: No Symptoms Pulmonary: Reports: No Symptoms. Denies: Shortness of Breath, Cough Cardiovascular: Reports: No Symptoms. Denies: Chest Pain, Palpitations, Orthopnea, PND Gastrointestinal: Reports: No Symptoms. Denies: Abdominal Pain Psychiatric: Reports: Anxiety, Suicidal Ideation - Patient Data Vitals - Most Recent: Last Vital Signs Temp 97.5 F 11/05/18 08:00 Pulse 60 11/05/18 08:00 Resp 16 11/05/18 08:00 BP 114/75 11/05/18 08:00 Pulse Ox 100 11/05/18 08:00 Weight - Most Recent: 161 lb 3.2 oz I&O - Last 24 hours: Intake & Output 11/04/18 11/05/18 11/05/18 22:59 06:59 14:59 Intake Total 2852 612 Output Total 820 445 Balance 2032 167 Lab Results - Last 24 hrs: Laboratory Results - last 24 hr 11/05/18 11/05/18 Range/Units 05:08 05:08 WBC 8.05 (4.23-9.07) K/mm3 RBC 5.19 (4.63-6.08) M/mm3 Hgb 16.1 (13.7-17.5) gm/L Hct 47.8 (40.1-51.0) % MCV 92.1 D (79.0-92.2) fl MCH 31.0 (25.7-32.2) pg MCHC 33.7 (32.2-35.5) g/dl RDW Std Deviation 41.4 (35.1-43.9) fL Plt Count 209 (163-337) K/mm3 MPV 10.2 (9.4-12.3) fl Neut % (Auto) 65.6 (34.0-67.9) % Lymph % (Auto) 21.9 (21.8-53.1) % Maries % (Auto) 8.7 (5.3-12.2) % Eos % (Auto) 3.1 (0.8-7.0) Baso % (Auto) 0.5 (0.1-1.2) % Neut # (Auto) 5.28 (1.78-5.38) K/mm3 Lymph # (Auto) 1.76 (1.32-3.57) K/mm3 Maries # (Auto) 0.70 (0.30-0.82) K/mm3 Eos # (Auto) 0.25 (0.04-0.54) K/mm3 Baso # (Auto) 0.04 (0.01-0.08) K/mm3 Sodium 143 (136-145) mEq/L Potassium 4.1 (3.5-5.1) mEq/L Chloride 107 (98-107) mEq/L Carbon Dioxide 27 (21-32) mEq/L Anion Gap 13.1 (5-15) BUN 8 (7-18) mg/dL Creatinine 1.2 (0.7-1.3) mg/dL Est Cr Clr Drug Dosing 87.87 mL/min Estimated GFR (MDRD) > 60 (>60) mL/min BUN/Creatinine Ratio 6.7 L (14-18) Glucose 90 (74-106) mg/dL Calcium 9.2 (8.5-10.1) mg/dL Magnesium 1.8 (1.8-2.4) mg/dl Total Bilirubin 1.0 (0.2-1.0) mg/dL AST 11 L (15-37) U/L ALT 18 (16-63) U/L Alkaline Phosphatase 62 (46-116) U/L Total Protein 6.2 L (6.4-8.2) g/dl Albumin 3.5 (3.4-5.0) g/dl Globulin 2.7 gm/dL Albumin/Globulin Ratio 1.3 (1-2) Med Orders - Current: Current Medications Folic Acid (Folic Acid) 1 mg PO DAILY [facility] Last Admin: 11/05/18 09:01 Dose: 1 mg Lorazepam (Ativan) 1 mg IVPUSH Q30M PRN PRN Reason: restlessness or agitiation Last Admin: 11/05/18 08:11 Dose: 1 mg Lorazepam (Ativan) 0 mg IVPUSH ASDIRECTED PRN; Protocol PRN Reason: withdrawl Lorazepam (Ativan) 2 mg IVPUSH Q4H PRN PRN Reason: Seizures Miscellaneous Information (Remove Patch) 1 ea TRDERM Q24H [facility] Last Admin: 11/05/18 09:01 Dose: 1 ea Nicotine (Habitrol) 21 mg TRDERM DAILY [facility] Last Admin: 11/05/18 08:06 Dose: 21 mg Thiamine HCl (Vitamin B-1) 100 mg PO DAILY [facility] Last Admin: 11/05/18 09:01 Dose: 100 mg Discontinued Medications Folic Acid (Folic Acid) 1 mg IV DAILY [facility] Last Admin: 11/04/18 08:11 Dose: Not Given Dextrose/Sodium Chloride (Dextrose 5%-Normal Saline) 1,000 mls @ 150 mls/hr IV ASDIRECTED [facility] Last Admin: 11/04/18 01:52 Dose: 150 mls/hr Potassium Chloride 40 meq/ (Dextrose/Water) 1,020 mls @ 150 mls/hr IV ASDIRECTED [facility] Potassium Chloride/Dextrose/Sod Cl (D5 Ns With 20 Meq Kcl) 1,000 mls @ 150 mls/ hr IV ASDIRECTED [facility] Last Admin: 11/04/18 19:04 Dose: 150 mls/hr Thiamine HCl 100 mg/ Sodium (Chloride) 101 mls @ 202 mls/hr IV DAILY [facility] Potassium Chloride 10 meq/ (Premix) 100 mls @ 100 mls/hr IV Q1H [facility] Stop: 11/04/18 11:29 Last Admin: 11/04/18 11:00 Dose: 100 mls/hr Lactated Ringer's (Ringers, Lactated) 1,000 mls @ 75 mls/hr IV ASDIRECTED [facility] Last Admin: 11/04/18 20:04 Dose: 75 mls/hr Lorazepam (Ativan) 1 mg IVPUSH ONETIME ONE Stop: 11/04/18 02:12 Last Admin: 11/04/18 02:19 Dose: 1 mg Lorazepam (Ativan) 1 mg IVPUSH ONETIME ONE Stop: 11/04/18 02:29 Last Admin: 11/04/18 02:31 Dose: 1 mg Thiamine HCl (Vitamin B-1) 100 mg IVPUSH DAILY [facility] Last Admin: 11/04/18 08:12 Dose: Not Given - Exam General: Reports: Alert, Oriented HEENT: Reports: Pupils Equal, Pupils Reactive Neck: Reports: Supple Lungs: Reports: Clear to Auscultation, Normal Respiratory Effort Cardiovascular: Reports: Regular Rate, Regular Rhythm GI/Abdominal Exam: Normal Bowel Sounds, Soft, Non-Tender, No Organomegaly, No Distention Extremities: Normal Inspection, Normal Range of Motion, Non-Tender, No Pedal Edema Skin: Reports: Warm, Dry, Intact Neurological: Reports: No New Focal Deficit Psy/Mental Status: Reports: Alert, Anxious, Suicidal Ideation
[2018-11-05 11:32] VITALS: BP 132/77
== END 2018-11-05 14:10 | DRG 812 ==
LOC: JD.ED 01:31 → JD.ICU 05:10
PROVIDERS: ADMIT Family Medicine; ATTEND Family Medicine
DX: T48.1X2A Poisoning by skeletal muscle relaxants [neuromuscular blocking agents], intentional self-harm, initial encounter (principal); E87.6 Hypokalemia; F17.200 Nicotine dependence, unspecified, uncomplicated; F32.9 Major depressive disorder, single episode, unspecified; F41.9 Anxiety disorder, unspecified
CPT/HCPCS: 36415; 51702; 51798; 80053; 80306; 81001; 83605; 83735; 85007; 85025; 85027; 85610; 85730; 93005; 96361; 96374; 99285-25; A9270-GY; G0480; J2060; J3411; J3480; J7042; J7120

== ENCOUNTER 2022-12-14 20:01 | Emergency (ER) | payer BC, MEDICAID ==
[2022-12-14] MEDS ORDERED: Ondansetron 4 MG Tab.DIS PO ONE (20:50)
[2022-12-14] MEDS ORDERED: Ibuprofen 600 MG Tab PO ONE (20:51)
[2022-12-14] MEDS ORDERED: Lidocaine 1% 10 ML MDV INJECT ONE (20:51)
[2022-12-14] MEDS ORDERED: Diphtheria,Pertussis(Acell),Tetanus Vaccine 0.5 ML Syringe IM ONE (20:52)
[2022-12-14 22:10] VITALS: BP 121/59; PULSE 71
== END 2022-12-14 22:08 ==
LOC: JD.ED 20:01
DX: S01.511A Laceration without foreign body of lip, initial encounter (principal); S00.03XA Contusion of scalp, initial encounter; Z23 Encounter for immunization; Y04.0XXA Assault by unarmed brawl or fight, initial encounter
CPT/HCPCS: 12013; 70450; 70486; 90471; 90715; 99284; A9270; 99283; J3490